=== PATIENT | female | born 2000 | race Caucasian/White ===

== ENCOUNTER 2020-08-10 20:50 | Emergency (ER) | payer SELFPAY ==
[2020-08-10 21:37] LABS: #Basophils 0.1 thou/uL (0.0-0.2); #Eosinphils 0.3 thou/uL (0.0-0.7); #Lymphocytes 4.2 thou/uL (1.20-3.40); %Basophils 0.9 % (0.0-1.0); %Eosinophils 2.6 % (0.0-10.0); %Lymphocytes 36.3 % (21.0-51.0); %Monocytes 8.9 % (0.0-10.0); %Neutrophils 51.3 % (42.0-75.0); Mean Corpuscular HGB CONC 33.6 g/dL (32.0-36.0); Mean Corpuscular Hemoglobin 29.1 pg (27.0-31.0); Mean Corpuscular Volume 86.7 fL (78.0-98.0); Mean Platelet Volume 7.7 fL (7.4-10.4); Platelet Count 308 thou/uL (130-400); RBC Distribution Width 12.3 % (11.5-14.5); White Blood Cell (WBC) Count 11.6 thou/uL (4.8-10.8)
[2020-08-10 22:08] LABS: ALT (SGPT) 22 U/L (8-55); AST (SGOT) 17 U/L (5-34); Albumin 4.4 g/dL (3.5-5.0); Alkaline Phosphatase 72 U/L (40-110); Anion Gap 15 mmol/L (10-20); BUN (Urea Nitrogen) 13 mg/dL (7.0-18.7); Bilirubin, Total 0.2 mg/dL (0.2-1.2); Calc. Creatinine Clearance 0 mL/min (70-130); Calcium 9.9 mg/dL (7.8-10.44); Carbon Dioxide 26 mmol/L (22-29); Chloride 104 mmol/L (98-107); Estimated GFR-MDRD 83; Globulin 3.6 g/dL (2.4-3.5); Glucose 91 mg/dL (70-105); Potassium 3.9 mmol/L (3.5-5.1); Sodium 141 mmol/L (136-145)
== END 2020-08-10 23:49 | disposition home or self-care (01) ==
LOC: ERS 20:50
DX: L60.0 Ingrowing nail (principal)
CPT/HCPCS: 36415; 80053; 85025; 86140; 99283

== ENCOUNTER 2020-08-20 07:54 | Emergency (ER) | payer SELFPAY ==
[2020-08-20] MEDS ORDERED: Ondansetron PF 4 MG/2 ML Vial ONE (08:34)
[2020-08-20] MEDS ORDERED: Ketorolac Tromethamine 30 MG/ML VIAL ONE (08:34)
[2020-08-20 08:40] LABS: #Basophils 0.1 thou/uL (0.0-0.2); #Eosinphils 0.3 thou/uL (0.0-0.7); %Basophils 1.1 % (0.0-1.0); %Monocytes 11.6 % (0.0-10.0); %Neutrophils 48.3 % (42.0-75.0); Hemoglobin 13.5 g/dL (12.0-16.0); Mean Corpuscular HGB CONC 33.5 g/dL (32.0-36.0); Mean Corpuscular Hemoglobin 29.1 pg (27.0-31.0); Mean Corpuscular Volume 86.9 fL (78.0-98.0); Mean Platelet Volume 7.7 fL (7.4-10.4); Platelet Count 277 thou/uL (130-400); RBC Distribution Width 12.3 % (11.5-14.5); Red Blood Cell (RBC) Count 4.63 mill/uL (4.20-5.40); White Blood Cell (WBC) Count 8.2 thou/uL (4.8-10.8)
[2020-08-20 08:48] LABS: Bilirubin Unable to Interpret (Negative); Clarity Cloudy (Clear); Glucose, Urine (Dipstick) Unable to Interpret mg/dL (Negative); Ketone, Urine Unable to Interpret mg/dL (Negative); Leukocyte Unable to Interpret Leu/uL (Negative); Nitrite Unable to Interpret (Negative); Protein, Urine (Dipstick) Unable to Interpret mg/dL (Neg-Trace); Urobilinogen UNABLE TO INTERPRET mg/dL (Less than 2)
[2020-08-20 08:50] LABS: Specific Gravity, Urine 1.025 (1.002-1.036)
[2020-08-20 08:53] LABS: pH, Urine 5.2 (5.0-9.0)
[2020-08-20 09:01] LABS: RBC/HPF 0-3 HPF (0-3)
[2020-08-20 09:03] LABS: Bacteria/HPF 1+ HPF (None Seen)
[2020-08-20 09:04] LABS: Pregnancy Test - Urine (BHCG) Negative (Negative)
[2020-08-20 09:05] LABS: Blood, Urine Unable to Interpret (Negative); Pregu Control Background? CLEAR/WHITE (CLR/WHITE); Pregu Control Bar Appear? YES (CONTROL BAR); Specific Gravity 1.025 (1.002-1.036)
[2020-08-20 09:09] LABS: ALT (SGPT) 24 U/L (8-55); AST (SGOT) 18 U/L (5-34); Alkaline Phosphatase 59 U/L (40-110); Anion Gap 14 mmol/L (10-20); BUN (Urea Nitrogen) 11 mg/dL (7.0-18.7); Bilirubin, Total 0.5 mg/dL (0.2-1.2); Calc. Creatinine Clearance 0 mL/min (70-130); Calcium 8.7 mg/dL (7.8-10.44); Carbon Dioxide 20 mmol/L (22-29); Chloride 108 mmol/L (98-107); Globulin 3.1 g/dL (2.4-3.5); Glucose 85 mg/dL (70-105); Potassium 3.6 mmol/L (3.5-5.1); Protein, Total 7.1 g/dL (6.0-8.3); Sodium 138 mmol/L (136-145)
--- NOTE | 2020-08-20 09:43 | ULT ---
PELVIC ULTRASOUND: Transabdominal and endovaginal ultrasound of pelvis performed. INDICATION: Left lower quadrant pain and pelvic pain. FINDINGS: Uterus has a normal size and appearance. Endometrium is thickened measuring up to 1 cm. Both ovaries are identified and appear unremarkable. Color Doppler and spectral analysis demonstrate blood flow to both ovaries. No free fluid. IMPRESSION: Mildly thickened endometrium. Pelvic ultrasound otherwise unremarkable. POS: [facility]
[2020-08-20] MEDS ORDERED: Lidocaine 1% PF 5 ML VIAL ONE (09:51)
[2020-08-20] MEDS ORDERED: cefTRIAXone\\ROCEPHIN 250 MG VIAL ONE (09:51)
[2020-08-23 21:15] LABS: Chlamydia by PCR Not Detected (NotDetected); GC by PCR Not Detected (NotDetected)
== END 2020-08-20 10:20 | disposition home or self-care (01) ==
LOC: ERS 07:54
DX: N73.9 Female pelvic inflammatory disease, unspecified (principal); R35.0 Frequency of micturition
CPT/HCPCS: 36415; 76856; 80053; 81003; 81015; 81025; 85025; 87480; 87491; 87510; 87591; 87660; 96372; 96374; 96375; J0696; J1885; J2405